=== PATIENT | male | born 1970 | race Caucasian/White ===

== ENCOUNTER 2022-05-15 19:14 | Emergency (ER) | payer OTHER, SELFPAY ==
[2022-05-15 19:23] VITALS: BP 130/74; PULSE 92; RESP 18; TEMP 37; O2SAT 94
--- NOTE | 2022-05-15 19:34 | ED.GENADUL_ITS ---
Discharge Plan Disposition Patient Disposition: HOME Condition: Stable Discharge Details Clinical Impression: COVID-19 Primary Care Provider: Unknown,Unknown ED Provider: Senait Rome Discharge Instructions Instructions: COVID-19 (Coronavirus Disease 2019) (ED) Additional Instructions: Please take vitamin D3, vitamin C and zinc which you can obtain [id number]. Please take Tylenol or Ibuprofen with food every 4-6 hours as needed for pain and swelling. Follow up with primary care provider in 3-5 days. Return to ED sooner if any worsening or concerns. Increase oral fluids. Continue to quarantine and wear a mask as recommended by his PCM or your employer. Stand Alone Forms: Work Release Medical Decision Making 51-year-old male presents to the ER with chief complaint fever, body aches, and lower back pain which began earlier today. Patient was recently traveled to [facility] and had contact with COVID-positive person. He also reports throat pain. He did have a home rapid COVID swab prior to arrival which was negative. He did take a gram of Tylenol prior. He has also been taking TheraFlu. He denies any abdominal pain problems urinating nausea vomiting. Denies cough, chest pain, SOB. T-max 103, Does endorse some mild diarrhea. CBC shows leukopenia white blood cell count 9.3, sodium 134 potassium 3.4 glucose 123 magnesium 1.7 urinalysis shows no evidence for urinary tract infection. Fluid swab positive for COVID. Discussed home care and strict return instructions with family and patient who verbalized understanding. Instructed to take [id number]-[id number] vitamins increase fluid and continue alternating Tylenol and ibuprofen. This text was generated using [employer] dictation system, please disregard any oddities of phrase or misspellings. Lab Data Lab results reviewed: Yes I reviewed the patient's lab results. Labs: Laboratory Tests Range/Units 05/15/22 05/15/22 05/15/22 19:30 19:35 19:35 WBC (4.4-10.8) 10^3/uL RBC (4.36-5.78) 10^6/uL Hgb (13.5-17.5) g/dL Hct (40.0-50.0) % MCV (80-95) fL MCH (27.0-33.0) pg MCHC (32.0-36.0) % RDW (11.8-14.1) % Plt Count (130-400) 10^3/uL MPV (8.0-11.0) fL Immature Gran % Neutrophils % Lymphocytes % Monocytes % Eosinophils % Basophils % Nucleated RBC % (0.0-0.3) % Absolute Neutrophils (1.2-6.7) 10^3/uL Absolute Lymphocytes (1.2-3.4) 10^3/uL Absolute Monocytes (0.1-0.8) 10^3/uL Absolute Eosinophils (0.0-0.7) 10^3/uL Absolute Basophils (0.0-0.2) 10^3/uL VBG Lactate (0.6-1.4) mmol/L 1.0 Sodium (136-145) mmol/L 134 L Potassium (3.5-5.1) mmol/L 3.4 L Chloride (98-107) mmol/L 99 Carbon Dioxide (21.0-32.0) mmol/L 26.0 Anion Gap (3-11) mmol/L 9.0 BUN (7-18) mg/dL 11 Creatinine (0.70-1.30) mg/dL 1.3 Estimated GFR/1.73 m2 (mL/min/1.73m2) 58.67 Glucose (74-106) mg/dL 123 H Calcium (8.5-10.1) mg/dL 9.0 Magnesium (1.8-2.4) mg/dL 1.7 L Total Bilirubin (0.2-1.0) mg/dL 0.5 AST (15-37) U/L 15 ALT (16-63) U/L 26 Alkaline Phosphatase (46-116) U/L 49 Total Protein (6.4-8.2) g/dL 7.5 Albumin (3.4-5.0) g/dL 4.1 Urine Color (Yellow) Urine Clarity (Clear) Urine pH (5-8) Ur Specific [place] (1.005-1.025) Urine Protein (Negative) mg/dL Urine Ketones (Negative) mg/dL Urine Blood (Negative) Urine Nitrite (Negative) Urine Bilirubin (Negative) Urine Urobilinogen (Up TO 0.2) EU/dL Ur Leukocyte Esterase (Negative) Urine Glucose (Negative) mg/dL COVID-19 Source Nasopharynx SARS-CoV-2 (PCR) (Negative) Positive A Influenza Type A (PCR) (Negative) Negative Influenza Type B (PCR) (Negative) Negative RSV (PCR) (Negative) Negative Range/Units 05/15/22 05/15/22 19:35 19:50 WBC (4.4-10.8) 10^3/uL 3.63 L RBC (4.36-5.78) 10^6/uL 4.59 Hgb (13.5-17.5) g/dL 13.7 Hct (40.0-50.0) % 40.9 MCV (80-95) fL 89 MCH (27.0-33.0) pg 29.8 MCHC (32.0-36.0) % 33.5 RDW (11.8-14.1) % 12.9 Plt Count (130-400) 10^3/uL 172 MPV (8.0-11.0) fL 11.9 H Immature Gran % 0.3 Neutrophils % 71.3 Lymphocytes % 8.3 Monocytes % 18.7 Eosinophils % 0.8 Basophils % 0.6 Nucleated RBC % (0.0-0.3) % 0.0 Absolute Neutrophils (1.2-6.7) 10^3/uL 2.59 Absolute Lymphocytes (1.2-3.4) 10^3/uL 0.30 L Absolute Monocytes (0.1-0.8) 10^3/uL 0.68 Absolute Eosinophils (0.0-0.7) 10^3/uL 0.03 Absolute Basophils (0.0-0.2) 10^3/uL 0.02 VBG Lactate (0.6-1.4) mmol/L Sodium (136-145) mmol/L Potassium (3.5-5.1) mmol/L Chloride (98-107) mmol/L Carbon Dioxide (21.0-32.0) mmol/L Anion Gap (3-11) mmol/L BUN (7-18) mg/dL Creatinine (0.70-1.30) mg/dL Estimated GFR/1.73 m2 (mL/min/1.73m2) Glucose (74-106) mg/dL Calcium (8.5-10.1) mg/dL Magnesium (1.8-2.4) mg/dL Total Bilirubin (0.2-1.0) mg/dL AST (15-37) U/L ALT (16-63) U/L Alkaline Phosphatase (46-116) U/L Total Protein (6.4-8.2) g/dL Albumin (3.4-5.0) g/dL Urine Color (Yellow) Yellow Urine Clarity (Clear) Clear Urine pH (5-8) 7.0 Ur Specific [place] (1.005-1.025) 1.020 Urine Protein (Negative) mg/dL Negative Urine Ketones (Negative) mg/dL Negative Urine Blood (Negative) Negative Urine Nitrite (Negative) Negative Urine Bilirubin (Negative) Negative Urine Urobilinogen (Up TO 0.2) EU/dL 1.0 H Ur Leukocyte Esterase (Negative) Negative Urine Glucose (Negative) mg/dL Negative COVID-19 Source SARS-CoV-2 (PCR) (Negative) Influenza Type A (PCR) (Negative) Influenza Type B (PCR) (Negative) RSV (PCR) (Negative) HPI General Mode of arrival: ambulatory . Date/Time Provider Initiated Documentation: 05/15/22 19:15 . Limitations to Documentation: no limitations . Information obtained by: patient and RN notes reviewed . HPI Narrative: 51-year-old male presents to the ER with chief complaint fever, body aches, and lower back pain which began earlier today. Patient was recently traveled to [facility] and had contact with COVID-positive person. He also reports throat pain. He did have a home rapid COVID swab prior to arrival which was negative. He did take a gram of Tylenol prior. He has also been taking TheraFlu. He denies any abdominal pain problems urinating nausea vomiting. Denies cough, chest pain, SOB. T-max 103, Does endorse some mild diarrhea. Related Data Allergies Allergy/AdvReac Type Severity Reaction Status Date / Time No Known Allergies Allergy Unverified 05/15/22 19:27 General Stated Complaint: GenMedical CHARAN: 4 Review of Systems All systems reviewed & are unremarkable except as noted in HPI and below Constitutional Constitutional: Reports body ache(s), Reports chills and Reports fever(s) Cardiovascular Cardiovascular: Denies chest pain and Denies dyspnea Respiratory Respiratory: Denies cough and Denies dyspnea Gastrointestinal Gastrointestinal: Denies abdominal pain Musculoskeletal Musculoskeletal: Reports back pain and Reports myalgias PFSH All Active Problems (Updated 05/15/22 @ 20:47 by Senait Rome NP) COVID-19 (Acute) Social History Smoking risk assessment performed?: No Do you feel safe at home: Yes Do you feel safe in your relationship?: Yes Exam Narrative Exam Narrative: Constitutional: Alert and oriented x3. Appears stated age. Normal body habitus. Head: Normocephalic, no trauma. Eyes: Pupils PERRL, Red reflex noted, EOM's intact. Eyelids symmetrical without lesions, discharge, or swelling. ENT: Bilateral TM's WNL, External ear normal to inspection, no mastoid TTP, swelling, or erythema, Nasal turbinates WNL, no nasal discharge. Normal dentition, Posterior pharynx WNL, no exudate. Chest: RRR, Normal S1, S2, distal pulses intact. Resp: Lungs clear to auscultation bilaterally, no wheezes, rales, or rhonchi. Abdomen: Soft, non-distended, Normoactive bowel sounds all 4 quads. Musculoskeletal: Normal gait, 5/5 strength to all four extremities. Skin: No suspicious rashes or lesions. Capillary refill less than 2 sec. Neurologic: Cranial nerves II-XII intact. Alert and oriented x 3. Motor: No deficits noted. Sensory: Intact bilaterally all 4 extremities. Hematologic/Lymphatic: No ecchymosis, no lymphadenopathy. Course Vital Signs Vital signs: Vital Signs Temperature 37.0 C 05/15/22 19:23 Pulse 92 H 05/15/22 19:23 Respiratory Rate 18 05/15/22 19:23 Blood Pressure 130/74 05/15/22 19:23 Pulse Oximetry 94 05/15/22 19:23 Temperature 37.0 C 05/15/22 19:23 Temperature Source Skin 05/15/22 19:23 Pulse 92 H 05/15/22 19:23 Respiratory Rate 18 05/15/22 19:23 Respiratory Effort 05/15/22 19:28 Blood Pressure 130/74 05/15/22 19:23 Blood Pressure Position Sitting 05/15/22 19:23 Pulse Oximetry 94 05/15/22 19:23 Oxygen Delivery Method Room Air 05/15/22 19:23 Oxygen Flow Rate 0 05/15/22 19:23 Pain Level 8 05/15/22 19:23
[2022-05-15 19:50] LABS: Abs Immature Grans 0.01 10^3/uL (0.0-0.06); Absolute Basophil Count 0.02 10^3/uL (0.0-0.2); Absolute Eosinophil Count 0.03 10^3/uL (0.0-0.7); Absolute Monocyte Count 0.68 10^3/uL (0.1-0.8); Absolute Neutrophil Count 2.59 10^3/uL (1.2-6.7); Basophils % 0.6; Eosinophils % 0.8; HCT 40.9 % (40.0-50.0); HGB 13.7 g/dL (13.5-17.5); Immature Grans % 0.3; Lymphocytes % 8.3; MCH 29.8 pg (27.0-33.0); MCHC 33.5 % (32.0-36.0); MCV 89 fL (80-95); MPV 11.9 fL (8.0-11.0); Monocytes % 18.7; Neutrophils % 71.3; Platelet Count 172 10^3/uL (130-400); RBC 4.59 10^6/uL (4.36-5.78); RDW 12.9 % (11.8-14.1); RDW-SD 42.2 fL; WBC 3.63 10^3/uL (4.4-10.8)
[2022-05-15] MEDS: Normal Saline 1,000 ML 1000 ML IV (19:53)
[2022-05-15 19:58] LABS: Bilirubin Negative (Negative); Blood Negative (Negative); Clarity Clear (Clear); Glucose Negative (Negative); Ketones Negative (Negative); Leukocyte Esterase Negative (Negative); Nitrite Negative (Negative)
[2022-05-15 20:07] LABS: ALT 26 U/L (16-63); AST 15 U/L (15-37); Albumin 4.1 g/dL (3.4-5.0); Alkaline Phosphatase 49 U/L (46-116); BUN 11 mg/dL (7-18); Bilirubin, Total 0.5 mg/dL (0.2-1.0); CREATININE 1.3 mg/dL (0.70-1.30); Chloride 99 mmol/L (98-107); Estimated GFR 58.67 (mL/min/1.73m2); Glucose 123 mg/dL (74-106); Magnesium 1.7 mg/dL (1.8-2.4); Potassium 3.4 mmol/L (3.5-5.1); Sodium 134 mmol/L (136-145); Total Protein 7.5 g/dL (6.4-8.2)
[2022-05-15 20:25] LABS: Influenza A PCR Negative (Negative); Influenza B PCR Negative (Negative); RSV PCR Negative (Negative)
[2022-05-15 20:32] LABS: Source Nasopharynx
[2022-05-15 20:33] LABS: COVID-19 PCR Positive (Negative)
== END 2022-05-15 20:58 | disposition home or self-care (01) ==
PROVIDERS: Emergency Provider Registered Nurse Emergency
DX: U07.1 COVID-19 (principal); D72.819 Decreased white blood cell count, unspecified
CPT/HCPCS: 80053; 87637; 96360; 99284; 81003; 83605; 83735; 85025

== ENCOUNTER 2023-06-04 08:16 | Day surgery (SDC) | payer OTHER, SELFPAY ==
--- NOTE | 2023-06-03 18:47 | PDOC.DSDIS_ITS ---
Date of service: 06/04/23 Time of Service: 09:49 Discharge Plan Disposition Patient Disposition: Home Condition: Good Discharge Details Reason For Visit: Screening colonoscopy Attending Provider: Basim Nolasco Primary Care Provider: KENDY CHAMORRO Home Meds and New Rx's Prescriptions: Continued allopurinol 300 mg tablet 300 mg PO DAILY colchicine 0.6 mg tablet 0.6 mg PO DAILY PRN Discharge Instructions Instructions: Diverticulosis (GEN), Diverticulosis Diet (GEN) Additional Instructions: Leo, we were able to complete your colonoscopy today without any trouble. The quality of your preparation was outstanding. I did not see any signs of tumors or polyps anywhere in your large intestine. Incidentally, you do have some very rare occasional sigmoid diverticula. These are small weak spots in 1 part of the wall of your large intestine. I suspect these have not caused you any symptoms at all. Have attached a little bit of information here regarding general management of diverticulosis. Basically, I would encourage you to try to maintain a diet that is rich in fiber, and to stay well-hydrated. Since your colonoscopy was otherwise negative with regards to risk factors for cancer, you should consider another screening colonoscopy in 10 years. 1. If tolerated, consume a soft, low fiber diet for 1-2 days. 2[address] Do not drive, drink alcohol, operate machinery, make critical decisions, or do activities that require coordination or balance for 24 hours. 3. Because air was put into your colon during the procedure, expelling air from your rectum (passing gas or farting) is normal. 4. You may not have a bowel movement for 1-3 days because of the colonoscopy pre p. This is normal. 5. Go directly to the emergency room if you notice any of the following: Develop chills (warm to touch), or if you have a thermometer and your temperature is above 101 Difficulty breathing or difficultly swallowing Persistent vomiting Severe abdominal pain, other than gas cramps Severe chest pain Black, tarry stools Any bleeding ? exceeding one tablespoon 6. Call your physician if the site where your intravenous was started becomes red, swollen, painful, and warm to touch. 7. Your physician has reviewed your pre-procedure medications. Please continue to take those medications as previously ordered. You will be given specific information/education regarding any changes to your medications before leaving. Activity:: Activity as Tolerated Diet:: As Tolerated Discharge Orders Discharge Orders: Discharge Order (Routine); Ordered 06/03/23 Ordered By: Basim Nolasco DS: Diagnosis Discharge Diagnosis (1) Screening for colon cancer: Status: Acute Asessment and Plan: Negative screening colonoscopy
--- NOTE | 2023-06-03 18:48 | COLE_ITS ---
Date of service: 06/04/23 Time of Service: 09:51 Colonoscopy Report Date of procedure: 06/04/23 Pre-op diagnosis general: Screening colonoscopy Post-op diagnosis procedure note: other (Rare sigmoid diverticulosis) Procedure: Colonoscopy Surgeon: Basim Nolasco Anesthesia Type: General:No Airway Estimated blood loss (mL): 0 Pathology: none sent Complications: None Disposition: same day Indications: Leo is a 52 year old man how needs his first colonoscopy Prep: Miralax/Dulcolax Procedure Start Time: 09:21 Procedure End Time: 09:36 Retraction Time: 9 Findings: Occasional sigmoid diverticulosis Procedure Description: After the induction of monitored anesthetic care, and with the patient in left lateral decubitus position, I began by performing an external anorectal exam.? Perineum and skin were normal, as was the anal verge.? There was no not evidence of external hemorrhoids.? Next, I performed a digital rectal exam.? I did appreciate any abnormal findings.? Next, I advanced a colonoscope into the rectal vault.? I performed retroflexion.? This was normal.? Using insufflation, I then advanced the colonoscope beyond the rectal folds and into the sigmoid colon before advancing towards the cecum.? The quality of the prep was outstanding. There were a few rare sigmoid diverticuli.? The scope was noted to be in the cecum by identification of the ileocecal valve and appendiceal orifice.? I then began withdrawing the colonoscope using repeated irrigation as necessary for full evaluation of the colonic mucosa. ?Once the scope was withdrawn to the level of the rectum, great care was taken to examine portions o f the rectal folds.? I did not see any signs of tumors or polyps. Finally, the scope was withdrawn and the patient was brought to the same-day surgery recovery unit as the anesthetic wore off. ?The findings and instructions were shared with the patient prior to discharge.
[2023-06-04 08:36] VITALS: BP 127/91; PULSE 85; RESP 16; TEMP 36.5; O2SAT 97
--- NOTE | 2023-06-04 08:52 | ANES.PREOP_ITS ---
General Info Date of Service Date Performed: 06/04/23 Height: 6 ft 5 in Weight: 121.5 kg Body Mass Index (BMI): 31.7 Surgical Procedure: Operation Date: 06/04/23 09:05 Proposed Procedure Side Surgeon p Colonoscopy Basim Nolasco MD Meds Allergies and Home Medications Allergies Allergy/AdvReac Type Severity Reaction Status Date / Time No Known Allergies Allergy Unverified 06/03/23 11:22 Home Medication Medication Instructions Recorded allopurinol 300 mg tablet 300 mg PO DAILY 10/13/22 colchicine 0.6 mg tablet 0.6 mg PO DAILY PRN 05/21/23 Current Visit Medications: Current Medications Generic Name Dose Route Start Last Admin Trade Name Freq PRN Reason Stop Dose Admin Hyoscyamine Sulfate 0.125 mg 06/03/23 18:52 Hyoscyamine 0.125 Mg Sl/Oral/Chew SL 07/03/23 18:51 DIRECTED PRN Ringer's Solution 1,000 mls @ 80 mls/hr 06/04/23 06:00 IV 07/03/23 23:59 [facility]ION [facility] IV Miscellaneous Supplies 1 each 06/04/23 06:00 Iv Access IV 07/03/23 23:59 DIRECTED MELISSA Ondansetron HCl 4 mg 06/03/23 18:52 Ondansetron 4 Mg/2 Ml Vial IVP 07/03/23 18:51 Q4H PRN PRN Nausea / Vomiting Sodium Chloride 0 ml 06/04/23 06:00 Normal Saline Flush 10 Ml Syr IV 07/03/23 23:59 PRN PRN Sodium Chloride 0 ml 06/04/23 06:00 Normal Saline 10 Ml Vial IJ 07/03/23 23:59 DIRECTED PRN Sterile Water 0 ml 06/04/23 06:00 Water,Injection,Sterile 10 Ml Vial IJ 07/03/23 23:59 DIRECTED PRN PFSH Active Problems Active Problems: Problem Status Onset Code COVID-19 U07.1 Screening for colon cancer Z12.11 Gout M10.9 Hypercholesterolemia E78.00 Prediabetes R73.03 Essential hypertension I10 Metabolic syndrome E88.81 Anxiety F41.9 Medical History Medical History (Updated 06/04/23 @ 08:34 by Davida Valencia RN) Hypertension Tobacco Smoking/Tobacco Use Status: Never Alcohol Alcohol Intake: current Alcohol intake frequency: a few times a month Substance Use Substance use type: does not use Vital Signs and Lab Results Vital Signs Most Recent Vital Signs in EMR: Most Recent Vital Signs Temp Pulse Resp BP Pulse Ox 36.5 C 85 16 120/101 H 97 06/04/23 08:36 06/04/23 08:36 06/04/23 08:36 06/04/23 08:36 06/04/23 08:36 Lab Results Blood Type / Crossmatch: No Data to Display Complete Blood Count: No Data to Display Complete Metabolic Panel: No Data to Display Liver Function Panel: No Data to Display Coagulation Panel: No Data to Display Cardiac Panel: No Data to Display Arterial Blood Gas: No Data to Display Venous Blood Gas: No Data to Display Pancreas Panel: No Data to Display Thyroid Panel: No Data to Display Infectious Disease: No Data to Display Blood Cultures: No Data to Display Toxicology Panel: No Data to Display Anesthesia Assessment and Plan Anesthesia History Personal History: No History of General Anesthesia Family History: No Family History of Anesthesia Complications Exercise Tolerance Exercise Tolerance: Metabolic Equivalents>4 Pertinent Negatives Pertinent Negatives: No Symptoms of GERD, No Major Cardiovascular Symptoms or Complaints and No Major Pulmonary Symptoms or Complaints Cardiac & Pulmonary Exam Cardiac Exam: Normal S1/S2 Heart Sounds Pulmonary Exam: Clear Bilateral Breath Sounds Implantable Cardiac Device Does patient have a Pacemaker or an ICD?: No Airway Exam Known Difficult Airway: No Mallampati Class: 1 Mouth Opening: Normal (> 3cm) Thyromental Distance: Greater than 3 cm Neck Range of Motion: Full ROM Neck Circumference: Normal Teeth Condition: Normal Dentition ASA Classification ASA Score: ASA 2 Emergency Case?: No NPO Status NPO Status: NPO Clears >2 hours, Solids >8 hours Anesthesia Plan Resuscitation Status: Full Code Anesthesia Technique: General Anesthesia Airway Planned: Natural Airway Monitors Used: Standard Monitors
[2023-06-04 08:53] VITALS: BMI 31.7
[2023-06-04] MEDS: Lactated Ringers 1,000 ML 80 ML IV (09:00)
[2023-06-04 09:45] VITALS: BP 120/91; PULSE 88; RESP 15; TEMP 36.4; O2SAT 96
[2023-06-04 10:15] VITALS: BP 118/83; PULSE 69; RESP 16; TEMP 36.4; O2SAT 96
--- NOTE | 2023-06-04 10:32 | W.ANESPOSTOP ---
Postoperative Evaluation Date, Time and Location Date Performed: 06/04/23 Time Performed: 10:32 Patient Location: Day Surgery Unit Vital Signs Most Recent Imported Vital Signs: Most Recent Vital Signs Temp Pulse Resp BP Pulse Ox 36.4 C L 69 16 118/83 96 06/04/23 10:15 06/04/23 10:15 06/04/23 10:15 06/04/23 10:15 06/04/23 10:15 Pain Score Most Recent Pain Score: Most Recent Pain Score Pain Level 0 06/04/23 10:15 Assessment Mental Status: Awake (Alert & Oriented to Patient Baseline) Airway and Respiratory Function: Patent airway with normal (patient baseline) respiratory exam Cardiovascular Function: Hemodynamically Stable Hydration Status: Adequately Hydrated Nausea & Vomiting: No Nausea or Vomiting Pain: Pt. Denies Any Pain Peripheral Nerve Block: Patient did not receive a nerve block
== END 2023-06-04 08:17 | disposition home or self-care (01) ==
PROVIDERS: PCP Physician Assistant; Visit Provider Surgery
PROC: 0DJD8ZZ Inspection of Lower Intestinal Tract, Via Natural or Artificial Opening Endoscopic (ICD-10-PCS; CPT 45378; principal; 2023-06-04 09:00)
DX: Z12.11 Encounter for screening for malignant neoplasm of colon (principal); I10 Essential (primary) hypertension; K57.30 Diverticulosis of large intestine without perforation or abscess without bleeding
CPT/HCPCS: 45378